=== PATIENT | male | born 2000 | race Two or more races ===

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

== ENCOUNTER 2024-03-11 20:38 | Emergency (ER) | payer SELFPAY | END 2024-03-11 22:39 | disposition home or self-care (01) | LOC: MW.ED 20:38 | DX: R21 Rash and other nonspecific skin eruption (principal); Z79.899 Other long term (current) drug therapy; Z75.8 Other problems related to medical facilities and other health care | CPT/HCPCS: 99282 ==